=== PATIENT | female | born 2000 | race American Indian/Alaskan Native ===

== ENCOUNTER 2020-12-28 21:54 | Emergency (ER) | payer MEDICAID ==
[2020-12-29 00:16] VITALS: BP 124/79
--- NOTE | 2020-12-29 00:38 | Emergency Department Report ---
ED Female HPI - General Chief complaint: Abdominal Pain Stated complaint: MENSTRUAL PAIN Time Seen by Provider: 12/29/20 00:12 Source: patient Mode of arrival: Ambulatory Limitations: No Limitations - History of Present Illness Initial comments: 20-year-old [place] female with a arm implant control method method also with her baby and May the chest past presents emerged part with complaining of having no. Since that time and now all of a sudden having associated with pelvic cramping. Bleeding is light and associated with no vaginal discharge or dysuria. No fever, chills, sweats. No chest pain or palpitations no nausea no vomiting MD Complaint: vaginal bleeding, pelvic pain -: days(s) (2) Location: suprapubic Quality: dull, aching Consistency: intermittent Improves with: none Worsens with: none Are you Now?: No Associated Symptoms: vaginal bleeding. denies: headaches, dysuria, hematuria - Related Data Sexually active: No Previous Rx's Medication Instructions Recorded Last Taken Type Ketorolac [Toradol] 10 mg PO Q6H PRN #14 tablet 12/29/20 Unknown Rx Allergies Allergy/AdvReac Type Severity Reaction Status Date / Time chlorpromazine Allergy Unknown Verified 12/29/20 00:10 [From Thorazine] ED Review of Systems ROS: Stated complaint: MENSTRUAL PAIN Other details as noted in HPI Comment: All other systems reviewed and negative ED Past Medical Hx - Past Medical History Previous Medical History?: No - Surgical History Past Surgical History?: No - Medications Home Medications: Home Medications Medication Instructions Recorded Confirmed Last Taken Type Ketorolac [Toradol] 10 mg PO Q6H PRN #14 tablet 12/29/20 Unknown Rx ED Physical Exam - General Limitations: No Limitations General appearance: alert, in no apparent distress - Head Head exam: Present: atraumatic, normocephalic - Eye Eye exam: Present: normal appearance, PERRL, EOMI Pupils: Present: normal accommodation - ENT ENT exam: Present: normal exam, normal orophraynx, mucous membranes moist, TM's normal bilaterally - Neck Neck exam: Present: normal inspection, full ROM - Respiratory Respiratory exam: Present: normal lung sounds bilaterally. Absent: respiratory distress, wheezes, rales - Cardiovascular Cardiovascular Exam: Present: regular rate, normal rhythm. Absent: systolic murmur, diastolic murmur, rubs, gallop - GI/Abdominal GI/Abdominal exam: Present: soft, normal bowel sounds. Absent: tenderness, guarding, rebound, hyperactive bowel sounds, organomegaly - Extremities Exam Extremities exam: Present: normal inspection, full ROM, normal capillary refill - Back Exam Back exam: Present: normal inspection. Absent: CVA tenderness (R), CVA tenderness (L) - Neurological Exam Neurological exam: Present: alert, oriented X3, CN II-XII intact, normal gait - Psychiatric Psychiatric exam: Present: normal affect, normal mood - Skin Skin exam: Present: warm, dry, intact, normal color. Absent: rash ED Course Vital Signs 12/29/20 00:10 Temperature 98.0 F Pulse Rate 103 H Respiratory 16 Rate Blood Pressure 124/79 O2 Sat by Pulse 100 Oximetry ED Medical Decision Making - Lab Data Result diagrams: 12/29/20 00:32 12/29/20 00:32 - Medical Decision Making Presents emergency department complaining of pelvic cramping with her menses suggestive of dysmenorrhea. Based on the history, examination and the work-up of the patient's presentation is not consistent with an ectopic , molar , life threatening coagulopathy, trauma, serious bacterial infection, central process or other emergency. The patient is stable appearing and presentation most likely secondary to fibroids or other nonemergent cause of abnormal uterine bleeding/dysmenorrhea Disposition will discharge home with return precautions and instruct patient for prompt [facility] follow-up Will also prescribe anti-inflammatory and advised patient on iron therapy Critical care attestation.: If time is entered above; I have spent that time in minutes in the direct care of this critically ill patient, excluding procedure time. ED Disposition Clinical Impression: Dysmenorrhea Disposition: 01 HOME / SELF CARE / HOMELESS Is pt being admited?: No Does the pt Need Aspirin: No Condition: Stable Instructions: Dysmenorrhea, Abdominal Pain (ED) Prescriptions: Ketorolac [Toradol] 10 mg PO Q6H PRN #14 tablet PRN Reason: Pain Referrals: [facility] [Provider Group] - 3-5 Days
[2020-12-29 01:00] LABS: Basophils % (Auto) 0.4 % (0.0-1.8); Eosinophils # (Auto) 0.3 K/mm3 (0.0-0.4); Eosinophils % (Auto) 2.9 % (0.0-4.3); Hemoglobin 14.9 gm/dl (10.1-14.3); Lymphocytes # (Auto) 3.5 K/mm3 (1.2-5.4); Mean Corpuscular HGB Conc 35 % (30-34); Mean Corpuscular Volume 88 fl (79-97); Monocytes # (Auto) 0.8 K/mm3 (0.0-0.8); Monocytes % (Auto) 8.5 % (0.0-7.3); Platelet Count 225 K/mm3 (140-440); Red Cell Distribution Width 13.3 % (13.2-15.2)
[2020-12-29 01:06] LABS: Blood Urea Nitrogen 9 mg/dL (7-17); Hemolysis Index 3
[2020-12-29 01:08] LABS: BUN/Creatinine Ratio 15
[2020-12-29 03:01] LABS: Bilirubin,Urine NEG (Negative); Blood,Urine LG (Negative); Color,Urine Yellow (Yellow); Mucus,Urine FEW /HPF
== END 2020-12-29 04:00 | disposition home or self-care (01) ==
LOC: ED 21:54
DX: N94.6 Dysmenorrhea, unspecified (principal); Z88.8 Allergy status to other drugs, medicaments and biological substances
CPT/HCPCS: 36415; 80048; 81001; 84703; 85025; 87086; 99283